=== PATIENT | female | born 1945 | race Caucasian/White ===

== ENCOUNTER 2017-05-10 10:26 | Outpatient (CLI) | payer MEDICARE, OTHER ==
[2017-05-10 10:48] LABS: BASOPHILS % 0.2 (0.0-1.5); EOSINOPHILS % 2.3 % (0.0-6.8); MEAN CORPUSCULAR HEMOGLOBIN 28.3 pg (28.0-34.0); MEAN CORPUSCULAR VOLUME 84.4 fl (80.0-100.0); MONOCYTES % 3.5 % (0.0-11.0); NEUTROPHILS # 3.4 # k/uL (1.4-7.7)
[2017-05-10 11:15] LABS: eGFR (African) > 60; eGFR (Non-African) > 60
== END 2017-05-10 10:27 ==
LOC: LAB 10:26
PROVIDERS: ATTEND Family Medicine
DX: D59.1 Other autoimmune hemolytic anemias (principal); I10 Essential (primary) hypertension; M15.9 Polyosteoarthritis, unspecified; R73.09 Other abnormal glucose
CPT/HCPCS: 36415; 80053; 80061; 82607; 83036; 85025

== ENCOUNTER 2017-05-28 13:30 | Inpatient (IN) | payer MEDICARE, OTHER ==
[2017-05-28] MEDS ORDERED: SALINE FLUSH 10 ML DISP.SYRIN IVF ONE ×2 (14:32→14:48)
[2017-05-28] MEDS ORDERED: DILTIAZEM HCL 125 MG in 0.9 % SODIUM CHLORIDE 100 ML IV STA (14:35)
--- NOTE | 2017-05-28 14:37 | History and Physical Report ---
History of Present Illnes - History of Present Illness Reason for Visit: tachycardia History of Present Illness: 71-year-old white female who had just finished with a colonoscopy procedure, when she developed a to a fib with a rapid ventricular response of 140-150. Patient does not have any history of previous atrial fibrillation. Patient was not have any chest pain or chest pressure. Patient was in a normal sinus rhythm prior to the procedure. Patient states that she has had occasional palpitations in the past but nothing that was sustained. Patient was subsequently admitted to the hospital for further evaluation and treatment of her new onset atrial fibrillation. 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) - Past Surgical History Past Surgical History: Appendectomy, Cholecystectomy, Hysterectomy, Tubal Ligation, Tonsillectomy, Other (Carpal tunnel release, arthroscopic knee surgery ,hand surgery) - Past Social History Smoke: No Occupation: housewife Alcohol: None Drugs: None Lives: With Family Domestic Violence: Negative - Health Maintenance Health Maintenance: Cholesterol, Influenza Vaccine (2017), Pneumococcal Vaccine (11/01/10, 11/10/14), Mammogram, Colonoscopy Influenza Vaccine: Current for this Influenza Season Pneumonia Vaccine: Yes Resuscitation Status: Resusciation Status Resuscitation Status Full Code - Unable to Obtain History Unable to Obtain: Yes Review of Systems - Review of Systems Constitutional: negative: Fever, Chills, Sweats, Weakness Eyes: negative: vision change ENT: negative: Ear Pain, Ear Discharge, Nose Pain, Nose Discharge, Nose Congestion Respiratory: negative: Cough, Dry, Shortness of Breath, Hemoptysis, SOB with Excertion, Pleuritic Pain Cardiovascular: Palpitations. negative: Chest Pain, Orthopnea, Paroxysmal Noc. Dyspnea, Edema, Light Headedness Gastrointestinal: negative: Nausea, Vomiting, Abdominal Pain, Diarrhea, Constipation, Melena, Hematochezia Genitourinary: Incontinence (mild stress). negative: Dysuria, Frequency, Hematuria Musculoskeletal: negative: Back Pain Skin: negative: Rash, Lesions Neurological: negative: Weakness, Incoordination, Seizures - Medications/Allergies Allergies/Adverse Reactions: Allergies Allergy/AdvReac Type Severity Reaction Status Date / Time No Known Drug Allergies Allergy Verified 05/28/17 16:42 Home Medications: Home Medications Atorvastatin Calcium 20 mg PO DAILY 05/28/17 Current Inpatient Medications: Current Inpatient Medications Hydrochlorothiazide (Hydrodiuril) 25 mg PO DAILY [facility] Diltiazem HCl 125 mg/ Sodium (Chloride) 100 mls @ 15 mls/hr IV 1T STA PRN Reason: Protocol Stop: 05/28/17 21:14 Lisinopril (Prinivil) 20 mg PO DAILY [facility] Exam - Exam General: Alert, Oriented to Person, Oriented to Place, Oriented to Time, Cooperative, No acute distress HEENT: Atraumatic, PERRLA, EOMI, Mouth Mucous membr. moist/[address], Nose Mucous membr. moist/[address], Dentition Normal, Hearing Grossly Normal. No: Abnormal Pupil , Pharyngeal Erythema Neck: Normal Range of Motion Carotids: WNL Thyroid: WNL Lungs: Clear to auscultation, Normal air movement, Speaks full Sentences. No: Wheezes, Rales, Rhonchi Cardiovascular: Normal S1, Normal S2, No murmurs, Irregularly Irregular, Tachycardia, Atrial Fib Abdomen: Normal bowel sounds, Soft, No tenderness, No hepatospenomegaly, No masses Integumentary: Normal, [address], Warm, Dry Extremities: No clubbing, No cyanosis, No edema, Normal pulses, No tenderness/ swelling Neurological: Normal gait, Normal speech, Strength Equal Bilat, Normal tone, Sensation intact, Cranial nerves 3-12 NL, Reflexes 2+ Psych/Mental Status: Mental status NL, Mood NL, Appropriate Affect, Intact Judgment Assessment/Plan - Assessment/Plan (1) New onset atrial fibrillation Status: Acute Current Visit: Yes Assessment: Patient will be started on IV cardizem, will stop metoprolol. TSH has been ordered. MAIRA Vas score of 3, will start anticoagluation therapy (2) Generalized OA Status: Acute Current Visit: Yes Assessment: stable, continue with home medication (3) Essential hypertension Status: Acute Current Visit: Yes Assessment: will continue home meds (4) Autoimmune hemolytic anemia Status: Acute Current Visit: Yes Assessment: in remission VTE Assessment - RISK FACTOR SCORE VTE RISK FACTOR SCORES: AGE OVER 60 YEARS, ANTICIPATED BED CONFINEMENT OR IMMOBILIZATION > 24 HOURS - RISK VTE MODERATE RISK: SCORE OF 2 (RISK PROXIMAL DVT 2-4%) PROPHYAXIS NEEDED ( started on eliquis)
[2017-05-28] MEDS ORDERED: 0.9 % SODIUM CHLORIDE 100 ML IV ONE (14:43)
[2017-05-28] MEDS ORDERED: DILTIAZEM HCL 125 MG/25ML VIAL ONE (14:44)
[2017-05-28 14:56] LABS: BASOPHILS % 0.2 (0.0-1.5); EOSINOPHILS % 2.1 % (0.0-6.8); MEAN CORPUSCULAR HEMOGLOBIN 28.7 pg (28.0-34.0); MEAN CORPUSCULAR VOLUME 83.5 fl (80.0-100.0); MONOCYTES % 2.7 % (0.0-11.0); NEUTROPHILS # 4.2 # k/uL (1.4-7.7)
[2017-05-28 15:11] LABS: eGFR (African) > 60; eGFR (Non-African) > 60
[2017-05-28 15:34] VITALS: BMI 33.8
[2017-05-28] MEDS: APIXABAN 2.5 MG TABLET PO SCH ×2 (18:46→19:23)
[2017-05-28] MEDS ORDERED: ACETAMINOPHEN 325 MG TABLET PO PRN (20:41)
[2017-05-29] MEDS: APIXABAN 2.5 MG TABLET PO SCH (08:25)
[2017-05-29] MEDS ORDERED: HYDROCHLOROTHIAZIDE 25 MG TABLET PO SCH (09:00)
[2017-05-29] MEDS ORDERED: LISINOPRIL 20 MG TABLET PO SCH (09:00)
[2017-05-29] MEDS ORDERED: DILTIAZEM HCL 120 MG CAP.ER.24H PO SCH (10:00)
[2017-05-29 14:01] VITALS: BP 116/62
--- NOTE | 2017-05-29 14:03 | Discharge Summary ---
Discharge Summary - Discharge Sumary History of Present Illness: 71-year-old white female who had just finished with a colonoscopy procedure, when she developed a to a fib with a rapid ventricular response of 140-150. Patient does not have any history of previous atrial fibrillation. Patient was not have any chest pain or chest pressure. Patient was in a normal sinus rhythm prior to the procedure. Patient states that she has had occasional palpitations in the past but nothing that was sustained. Patient was subsequently admitted to the hospital for further evaluation and treatment of her new onset atrial fibrillation. Condition at Discharge: Stable Home Medications: Ambulatory Orders Medication Instructions Recorded Atorvastatin Calcium 20 mg PO DAILY 05/28/17 Acetaminophen [Tylenol] 650 mg PO Q6 PRN tablet 05/29/17 Apixaban [Eliquis] 5 mg PO BID #60 tablet 05/29/17 Diltiazem HCl [Diltiazem 24Hr Cd] 240 mg PO DAILY #30 cap.er.24h 05/29/17 Procedures this Visit: None Allergies/Adverse Reactions: Allergies Allergy/AdvReac Type Severity Reaction Status Date / Time No Known Drug Allergies Allergy Verified 05/28/17 16:42 Patient Problems: Current Active Problems Problem Status Onset Autoimmune hemolytic anemia Acute Essential hypertension Acute Generalized OA Acute New onset atrial fibrillation Acute Discharge Summary: Shortly after the patient completed her colonoscopy she went into in a to a fib pattern with a rapid ventricular response about hundred and 140-150. Patient denied having any chest pain or chest pressure. Patient was admitted to acute care. Patient was started on the Cardizem drip of 15 mg per hour. Patient rate did slow into the 80s-90s. Patient was in transitioned over to PO Cardizem. Patient was started on Eliquis with a Chadvas score of three.Patient continued to have an elevated heart rate of 140 with exertion. On the day of discharge patient did converge to a normal sinus rhythm and was able to maintain it. Patient blood pressure remains stable. I did talk with Dr. Avila who agreed with the plan of discontinuing the patient metoprolol and continued with that the diltiazem. In his plan to continue with the Eliquis for approximately one month as long as patient does not have any further atrial Revelation symptoms.Patient was discharged in stable condition. - Final Diagnosis (1) New onset atrial fibrillation Problems: Patient will be continued on Eliquis and diltiazem (2) Generalized OA Problems: Continue with Tylenol (3) Essential hypertension Problems: Patient will be discontinued off of metropolol and started on diltiazem. Will monitor BP (4) Autoimmune hemolytic anemia Problems: in remission at this time.
== END 2017-06-08 15:00 | disposition home or self-care (01) | DRG 310 ==
LOC: SOUTH 13:30 → OBSVTOIN 14:30 → UNDODISIN 05-29 15:00
PROVIDERS: ADMIT Family Medicine; ATTEND Family Medicine
DX: I48.91 Unspecified atrial fibrillation (principal); D12.5 Benign neoplasm of sigmoid colon; I10 Essential (primary) hypertension; M15.9 Polyosteoarthritis, unspecified; Z86.2 Personal history of diseases of the blood and blood-forming organs and certain disorders involving the immune mechanism
CPT/HCPCS: 36415; 45385; 80053; 84484; 85025; 85379; 99223; 99238; J2001; J2704; J3490; G0378; G0379; J7120; S1016

== ENCOUNTER 2017-07-04 10:44 | Outpatient (CLI) | payer MEDICARE, OTHER | END 2017-07-04 11:15 | LOC: RAD 10:44 | PROVIDERS: ATTEND Family Medicine | DX: M81.0 Age-related osteoporosis without current pathological fracture (principal) | CPT/HCPCS: 77080 ==

== ENCOUNTER 2017-10-03 09:01 | Outpatient (CLI) | payer MEDICARE, OTHER ==
[2017-10-03 09:24] LABS: BASOPHILS % 0.2 (0.0-1.5); EOSINOPHILS % 2.1 % (0.0-6.8); MEAN CORPUSCULAR HEMOGLOBIN 29.5 pg (28.0-34.0); MEAN CORPUSCULAR VOLUME 87.6 fl (80.0-100.0); MONOCYTES % 3.4 % (0.0-11.0); NEUTROPHILS # 3.9 # k/uL (1.4-7.7)
[2017-10-03 10:46] LABS: eGFR (African) > 60; eGFR (Non-African) > 60
== END 2017-10-03 09:20 ==
LOC: LAB 09:01
PROVIDERS: ATTEND Family Medicine
DX: I10 Essential (primary) hypertension (principal); E78.5 Hyperlipidemia, unspecified
CPT/HCPCS: 36415; 80053; 80061; 85025

== ENCOUNTER 2018-09-11 11:00 | Outpatient (CLI) | payer MEDICARE, OTHER ==
[2018-09-11 11:26] LABS: BASOPHILS % 0.5 (0.0-1.5); EOSINOPHILS % 3.8 % (0.0-6.8); MEAN CORPUSCULAR HEMOGLOBIN 29.4 pg (28.0-34.0); MONOCYTES % 3.4 % (0.0-11.0); NEUTROPHILS # 4.2 # k/uL (1.4-7.7)
[2018-09-11 11:49] LABS: eGFR (Non-African) > 60
[2018-09-11 11:51] LABS: APPEARANCE,URINE CLEAR (CLEAR); COLOR,URINE YELLOW (YELLOW); OCCULT BLOOD,URINE NEGATIVE (NEGATIVE); UROBILINOGEN URINE 0.2 Eu (0.2-1.0)
== END 2018-09-11 11:03 ==
LOC: LAB 11:00
PROVIDERS: ATTEND Family Medicine
DX: R35.0 Frequency of micturition (principal); R73.9 Hyperglycemia, unspecified; I10 Essential (primary) hypertension; D59.1 Other autoimmune hemolytic anemias
CPT/HCPCS: 36415; 80053; 80061; 81002; 82607; 83036; 85025

== ENCOUNTER 2019-03-12 08:55 | Outpatient (CLI) | payer MEDICARE, OTHER ==
[2019-03-12 09:39] LABS: BASOPHILS % 0.6 % (0.0-1.5); NEUTROPHILS # 3.3 # k/uL (1.4-7.7)
[2019-03-12 10:04] LABS: eGFR (Non-African) > 60
== END 2019-03-12 08:57 ==
LOC: LAB 08:55
PROVIDERS: ATTEND Family Medicine
DX: I10 Essential (primary) hypertension (principal); D50.1 Sideropenic dysphagia
CPT/HCPCS: 36415; 80053; 85025